=== PATIENT | male | born 1940 | race Caucasian/White ===

== ENCOUNTER 2017-02-21 19:49 | Emergency (ER) | payer MEDICARE, BC ==
[2017-02-21 20:05] VITALS: BP 124/78
--- NOTE | 2017-02-21 20:44 | UC ---
Skin Complaint HPI - HPI Summary HPI Summary: Pt c/o of tender "lump" in right ear that he noticed 3 days ago. Pt thinks he was bit by an insect. - History of Current Complaint Chief Complaint: UCSkin Time Seen by Provider: 02/21/17 20:10 Stated Complaint: RIGHT EAR PAIN Hx Obtained From: Patient Onset/Duration: Gradual Onset, Lasting Days - 3, Still Present Skin Exposure Onset/Duration: Days Ago - 3 Timing: Constant Onset Severity: Mild Current Severity: Mild Location: Ear (Right) Character: Raised, Painful Aggravating: Touch Alleviating: Unknown Associated Signs & Symptoms: Positive: Drainage - clear, crusted, Tenderness Related History: Insect Bite/Sting - suspected, Possible Reaction to: Insect - Allergy/Home Medications Allergies/Adverse Reactions: Allergies Allergy/AdvReac Type Severity Reaction Status Date / Time No Known Allergies Allergy Verified 02/21/17 19:57 Home Medications: Home Medications Lisinopril TAB* [Prinivil TAB*] 20 mg PO DAILY 02/21/17 [History Confirmed 02/21] Review of Systems Constitutional: Negative Skin: Other - tender lump, possible insect bite Eyes: Negative ENT: Other - possible insect bite, tender mass right outer ear base of pinna just above earlobe Respiratory: Negative Cardiovascular: Negative Gastrointestinal: Negative Genitourinary: Negative Motor: Negative Neurovascular: Negative Musculoskeletal: Negative Neurological: Negative Psychological: Negative All Other Systems Reviewed And Are Negative: Yes PMH/Surg Hx/FS Hx/Imm Hx Previously Healthy: No Cardiovascular History: Hypertension - Surgical History Surgical History: Yes Surgery Procedure, Year, and Place: paritial colon removal, 2 hernia operations , tongue surgery - Family History Known Family History: Positive: Cardiac Disease - Social History Occupation: Retired Lives: With Family Alcohol Use: None Substance Use Type: None Smoking Status (MU): Former Smoker Have You Smoked in the Last Year: No When Did the Patient Quit Smoking/Using Tobacco: 38 years ago - Immunization History Most Recent Influenza Vaccination: not yet Physical Exam Triage Information Reviewed: Yes Appearance: Well-Appearing Vital Signs: Initial Vital Signs Temp 98.4 F 02/21/17 19:53 Pulse 82 02/21/17 19:53 Resp 16 02/21/17 19:53 BP 124/78 02/21/17 19:53 Pulse Ox 98 02/21/17 19:53 Vital Signs Reviewed: Yes Eye Exam: Normal ENT Exam: Other - right ear, tender flucuant mas, with crusted opening of serous drainage. ~ 5 mm X 5 mm Neck exam: Normal Respiratory Exam: Normal Respiratory: Positive: No respiratory distress Musculoskeletal Exam: Normal Neurological Exam: Normal Psychological Exam: Normal Skin Exam: Other - tender mass, with crusted, clear drainage, right ear just above earlobe outer pinna Course/Dx - Course Course Of Treatment: small incision made in right ear tendermass with no purulent drainage. small amount of blood drained from site. Dressing applied. Bleeding controlled. pt tolerated procedure well. - Differential Diagnoses - Skin Complaint Differential Diagnoses: Abscess, Other - insect bite - Diagnoses Provider Diagnoses: insect bite? hematoma? abscess? Procedures - Incision and Drainage Site: right ear Instrument(s): Scalpel - 11 Discharge - Discharge Plan Condition: Stable Disposition: HOME Patient Education Materials: Insect Bite or Sting (ED), Abscess (ED) Referrals: Jesse Hobbs MD [Primary Care Provider] - If Needed Additional Instructions: Please follow up with your PCP or return to clinic as needed.
== END 2017-02-21 20:50 | disposition home or self-care (01) ==
LOC: UCCORT 19:49
DX: H93.8X1 Other specified disorders of right ear (principal); I10 Essential (primary) hypertension; Z87.891 Personal history of nicotine dependence
CPT/HCPCS: 99211; G0463

== ENCOUNTER 2017-03-02 13:14 | Emergency (ER) | payer MEDICARE, BC ==
[2017-03-02 13:30] VITALS: BP 138/73
--- NOTE | 2017-03-02 13:42 | UC ---
Ear Complaint HPI - HPI Summary HPI Summary: 76 YO MALE WITH RAPIDLY GROWING LESION RIGHT EAR I & DED LAST WK NO PUS SL PAIN - History of Current Complaint Chief Complaint: UCEar Stated Complaint: RIGHT EAR RECHECK Time Seen by Provider: 03/02/17 13:32 Hx Obtained From: Patient Onset/Duration: Sudden Onset, Lasting Days Severity Initially: Mild Severity Currently: Mild Pain Intensity: 3 Pain Scale Used: 0-10 Numeric Aggravating Factors: Nothing Alleviating Factors: Nothing Ear Image: 1 - NODULAR LESION. VESSELS. SLIGHT UMBILICATION AND CRUST - Allergies/Home Medications Allergies/Adverse Reactions: Allergies Allergy/AdvReac Type Severity Reaction Status Date / Time No Known Allergies Allergy Verified 03/02/17 13:30 PMH/Surg Hx/FS Hx/Imm Hx Cardiovascular History: Hypertension Cancer History: Colorectal Cancer, Other - TONGUE CA Other Cancer History: TONGUE - Surgical History Surgical History: Yes Surgery Procedure, Year, and Place: paritial colon removal, 2 hernia operations , tongue surgery - Family History Known Family History: Positive: Cardiac Disease, Hypertension - Social History Alcohol Use: None Substance Use Type: None Smoking Status (MU): Former Smoker Have You Smoked in the Last Year: No When Did the Patient Quit Smoking/Using Tobacco: 38 years ago - Immunization History Most Recent Influenza Vaccination: not yet Review of Systems Constitutional: Negative Skin: Negative Eyes: Negative ENT: Ear Ache Respiratory: Negative Cardiovascular: Negative Gastrointestinal: Negative Genitourinary: Negative Motor: Negative Neurovascular: Negative Musculoskeletal: Negative Neurological: Negative Psychological: Negative All Other Systems Reviewed And Are Negative: Yes Physical Exam Triage Information Reviewed: Yes Appearance: Well-Appearing, No Pain Distress, Well-Nourished Vital Signs: Initial Vital Signs Temp 98.4 F 03/02/17 13:26 Pulse 68 03/02/17 13:26 Resp 14 03/02/17 13:26 BP 138/73 03/02/17 13:26 Pulse Ox 98 03/02/17 13:26 Vital Signs Reviewed: Yes Eyes: Positive: Conjunctiva Clear ENT: Positive: Hearing grossly normal. Negative: Nasal congestion, Nasal drainage, Trismus, Muffled/hoarse voice Neck: Positive: Supple, Nontender Respiratory: Positive: Lungs clear, Normal breath sounds, No respiratory distress Psychological Exam: Normal Skin Exam: Other - SEE IMAGE Ear Complaint Course/Dx - Differential Dx/Diagnosis Provider Diagnoses: RIGHT EAR LESION. ?KERATOAKANTHOM VS SCC VS OTHER Discharge - Discharge Plan Condition: Stable Disposition: HOME Prescriptions: Cephalexin CAP* [Keflex CAP*] 500 mg PO QID #28 cap Referrals: Jesse Hobbs MD [Primary Care Provider] - Additional Instructions: CALL INSURANCE LOSS ADJUSTER DIRECTED I THINK YOU SHOULD HAVE LESION REMOVED FOR BIOPSY ? [place] TRY KEFLEX AND WARM COMPRESS IN CASE THIS IS DUE TO INFECTION
== END 2017-03-02 13:52 | disposition home or self-care (01) ==
LOC: UCCORT 13:14
DX: L98.9 Disorder of the skin and subcutaneous tissue, unspecified (principal); Z72.0 Tobacco use
CPT/HCPCS: 99212; G0463

== ENCOUNTER 2017-04-03 08:24 | Day surgery (SDC) | payer MEDICARE, BC ==
[~2017-04-03 08:24] MED LIST: Buffered Lidocaine 0.9% SYRIN* 5 ML/SYR SYRINGE INTRADERM ONE
[2017-04-03] MEDS ORDERED: ceFAZolin 2 GM PREMIX (*) 50 ML IVPB ONE (08:42)
[2017-04-03] MEDS ORDERED: Buffered Lidocaine 0.9% SYRIN* 5 ML/SYR SYRINGE ONE (08:42)
[2017-04-03] MEDS ORDERED: Lidocaine 1% MPF wEPI 200,000* 30 ML SDV ONE (09:30)
[2017-04-03] MEDS ORDERED: Methylene Blue 0.5 %* 50 MG/10 ML AMP IV ONE (09:30)
[2017-04-03] MEDS ORDERED: Midazolam* 1 MG/ML 2 ML VIAL (2 MG) ONE (09:54)
[2017-04-03] MEDS ORDERED: fentaNYL* 50 MCG/ML 2 ML VIAL (100 MCG VIAL) ONE (09:54)
[2017-04-03] MEDS ORDERED: Lidocaine 2% PF * 5 ML VIAL ONE (09:58)
[2017-04-03] MEDS ORDERED: Propofol* 10 MG/ML 20 ML BTL IV PUSH ONE ×2 (09:58→11:28)
[2017-04-03] MEDS ORDERED: Mineral Oil Sterile, TOPICAL* 25 ML BTL ONE (10:58)
[2017-04-03] MEDS ORDERED: Bupivacaine 0.25% SDV* 30 ML ONE (10:58)
[2017-04-03 12:17] VITALS: BP 131/67
== END 2017-04-03 12:41 | disposition home or self-care (01) ==
LOC: OR 08:24
PROVIDERS: ATTEND Plastic Surgery
DX: C44.222 Squamous cell carcinoma of skin of right ear and external auricular canal (principal); Z87.891 Personal history of nicotine dependence; I10 Essential (primary) hypertension; Z68.38 Body mass index [BMI] 38.0-38.9, adult; Z85.810 Personal history of malignant neoplasm of tongue
CPT/HCPCS: 88305; 88331; 88332; A9270-GY; J0690; J2001; J2250; J2704; J3010

== ENCOUNTER 2018-01-31 12:25 | Emergency (ER) | payer MEDICARE, BC ==
[2018-01-31 13:08] VITALS: BP 123/61
--- NOTE | 2018-02-17 23:55 | UC ---
Abdominal Pain Male HPI - HPI Summary HPI Summary: worsening LLQ pain - History of Current Complaint Chief Complaint: UCAbdominalPain Stated Complaint: LOWER LEFT ABDOMEN COMPLAINT Time Seen by Provider: 01/31/18 13:17 Hx Obtained From: Patient Onset/Duration: Sudden Onset Timing: Constant Severity Initially: Mild Severity Currently: Moderate Pain Intensity: 0 Location: Discrete At: LLQ Radiates: No Character: Colicy, Cramping, Sharp Aggravating Factor(s): Nothing Alleviating Factor(s): Nothing Associated Signs And Symptoms: Positive: Negative - Allergies/Home Medications Allergies/Adverse Reactions: Allergies Allergy/AdvReac Type Severity Reaction Status Date / Time nestor seed oil Allergy Headache Uncoded 01/31/18 13:00 Home Medications: Home Medications Calcium Phosphate Trib/Vit D3 [Prabhu Calcium + Vi... 250-135-200 mg-mg-Unit] 1 chw PO DAILY 01/31/18 [History Confirmed 01/31/18] Glucosam/Chondr/Collagn/Hyalur [Th Glucosamine/Chondroiti] 1 cap PO DAILY [History Confirmed 01/31/18] Lipoflavonoid 1 cap PO TID AC 01/31/18 [History Confirmed 01/31/18] Lisinopril TAB* [Prinivil TAB*] 20 mg PO DAILY 01/31/18 [History Confirmed 01/31] Methylsulfonylmethane [MSM] 1,000 mg PO DAILY 01/31/18 [History Confirmed ] Resveratrol 250 mg PO DAILY 01/31/18 [History Confirmed 01/31/18] Saw/Vit E/Sod Shani/Lyc/Beta/Pyg [Complete Prostate Health] 1 tab PO BID 01/31/18 [History Confirmed 01/31/18] Turmeric/Turmeric Root Extract [Turmeric 500 mg Capsule] 1 each PO DAILY [History Confirmed 01/31/18] PMH/Surg Hx/FS Hx/Imm Hx Previously Healthy: No Cardiovascular History: Hypertension - Surgical History Surgical History: Yes Surgery Procedure, Year, and Place: paritial colon removal [facility], 2 hernia operations, tongue surgery at [place] - Family History Known Family History: Positive: Cardiac Disease, Hypertension - Social History Occupation: Retired Lives: With Family Alcohol Use: None Substance Use Type: None Smoking Status (MU): Former Smoker Have You Smoked in the Last Year: No When Did the Patient Quit Smoking/Using Tobacco: 38 years ago - Immunization History Most Recent Influenza Vaccination: not yet Review of Systems Constitutional: Negative Skin: Negative Eyes: Negative ENT: Negative Respiratory: Negative Cardiovascular: Negative Gastrointestinal: Abdominal Pain Genitourinary: Negative Motor: Negative Neurovascular: Negative Musculoskeletal: Negative Neurological: Negative Psychological: Negative Is Patient Immunocompromised?: No All Other Systems Reviewed And Are Negative: Yes Physical Exam Triage Information Reviewed: Yes Appearance: Well-Appearing, Well-Nourished, Pain Distress - mild Vital Signs: Initial Vital Signs Temp 98.6 F 01/31/18 12:54 Pulse 84 01/31/18 12:54 Resp 18 01/31/18 12:54 BP 123/61 01/31/18 12:54 Pulse Ox 97 01/31/18 12:54 Vital Signs Reviewed: Yes Eye Exam: Normal Eyes: Positive: Conjunctiva Clear ENT Exam: Normal ENT: Positive: Normal ENT inspection, Hearing grossly normal. Negative: Trismus , Muffled voice, Hoarse voice Dental Exam: Normal Neck exam: Normal Neck: Positive: Supple, Nontender, No Lymphadenopathy Respiratory Exam: Normal Respiratory: Positive: Chest non-tender, Lungs clear, Normal breath sounds, No respiratory distress, No accessory muscle use Cardiovascular Exam: Normal Cardiovascular: Positive: RRR, No Murmur, Pulses Normal, Brisk Capillary Refill Abdominal Exam: Other Abdomen Description: Positive: Soft, Other: - LLQ tenderness/pain. Negative: No Organomegaly, CVA Tenderness (R), CVA Tenderness (L) Bowel Sounds: Positive: Present Musculoskeletal Exam: Normal Musculoskeletal: Positive: Strength Intact, ROM Intact, No Edema Neurological Exam: Normal Neurological: Positive: Alert, Muscle Tone Normal Psychological Exam: Normal Skin Exam: Normal Abd Pain Male Course/Dx - Course Course Of Treatment: NPO, to [facility] emergency department by private car for further evaluation - Differential Dx/Clinical Impression Provider Diagnoses: LLQ Abdomen pain Discharge - Sign-Out/Discharge Documenting (check all that apply): Patient Departure - Discharge Plan Condition: Fair Disposition: HOME-RECOMMEND TO ED Patient Education Materials: Acute Abdominal Pain (DC) Referrals: Jesse Hobbs MD [Primary Care Provider] - Additional Instructions: Please go directly to the emergency department at [facility] for further evaluation of left lower abdomen pain-- Nothing to eat or drink until evaluated by MD in the emergency department - Billing Disposition and Condition Condition: FAIR Disposition: Home-Recommend to ED Attestation Statement User Type: Provider - I was available for consult. This patient was seen by the ELIER. The patient was not presented to, seen by, or examined by me. -Zamzam
== END 2018-01-31 13:37 | disposition home or self-care (01) ==
LOC: UCCORT 12:25
DX: R10.32 Left lower quadrant pain (principal); I10 Essential (primary) hypertension; Z82.49 Family history of ischemic heart disease and other diseases of the circulatory system; Z87.891 Personal history of nicotine dependence
CPT/HCPCS: 81003; 99212; G0463

== ENCOUNTER 2018-01-31 14:30 | Emergency (ER) | payer MEDICARE, BC ==
--- NOTE | 2018-01-31 17:17 | ED ---
Abdominal Pain/Male - HPI Summary HPI Summary: 77 y/o male presents to the ED C/o LLQ pain starting there days ago, intermittent pain worse with urination and movement. No pain at rest. Denies fever, CP, SOB, urinary sx. PMHx HTN. Last BM 09:00 this morning. This is scribe Ed Izzy documenting for attending Heriberto Grier MD - History of Current Complaint Chief Complaint: EDAbdPain Stated Complaint: LOWER ABD PAIN SINCE SUNDAY Hx Obtained From: Patient Onset/Duration: Lasting Days Timing: Intermittent Pain Intensity: 0 Location: Discrete At: LLQ Aggravating Factor(s): Movement, Other: - urination Alleviating Factor(s): Nothing Associated Signs And Symptoms: Positive: Negative - Allergies/Home Medications Allergies/Adverse Reactions: Allergies Allergy/AdvReac Type Severity Reaction Status Date / Time nestor seed oil Allergy Headache Uncoded 01/31/18 13:00 PMH/Surg Hx/FS Hx/Imm Hx Previously Healthy: No Cardiovascular History: Reports: Hx Hypertension Musculoskeletal History: Reports: Hx Arthritis - general and joint Sensory History: Reports: Hx Contacts or Glasses Denies: Hx Hearing Aid Opthamlomology History: Reports: Hx Contacts or Glasses Neurological History: Reports: Hx Headaches, Hx Migraine - Cancer History Cancer Type, Location and Year: colon cancer s/p surgery. tongue cancer s/p surgery - Surgical History Surgery Procedure, Year, and Place: paritial colon removal [facility], 2 hernia operations, tongue surgery at [facility] Hx Anesthesia Reactions: No Infectious Disease History: No Infectious Disease History: Denies: Traveled Outside the [place] in Last 30 Days - Family History Known Family History: Positive: Cardiac Disease, Hypertension - Social History Alcohol Use: None Substance Use Type: Reports: None Smoking Status (MU): Former Smoker Have You Smoked in the Last Year: No Review of Systems Negative: Fever, Chills Negative: Erythema Negative: Sore Throat Negative: Chest Pain Negative: Shortness Of Breath, Cough Positive: Abdominal Pain. Negative: Vomiting, Nausea Negative: dysuria, hematuria Negative: Myalgia, Edema Negative: Rash Neurological: Other - no dizziness All Other Systems Reviewed And Are Negative: Yes Physical Exam - Summary Physical Exam Summary: Constitutional: Well-developed, Well-nourished, Alert. (-) Distressed Skin: Warm, Dry HENT: Normocephalic; Atraumatic Eyes: Conjunctiva normal Neck: Musculoskeletal ROM normal neck. (-) JVD, (-) Stridor, (-) Tracheal deviation Cardio: Rhythm regular, rate normal, Heart sounds normal; Intact distal pulses; The pedal pulses are 2+ and symmetric. Radial pulses are 2+ and symmetric. (-) Murmur Pulmonary/Chest wall: Effort normal. (-) Respiratory distress, (-) Wheezes, (-) Rales Abd: Soft, LLQ tenderness, L CVA tenderness, (-) Distension, (-) Guarding, (-) Rebound Musculoskeletal: (-) Edema Lymph: (-) Cervical adenopathy Neuro: Alert, Oriented x3 Psych: Mood and affect Normal Triage Information Reviewed: Yes Vital Signs On Initial Exam: Initial Vitals Temp Pulse Resp BP Pulse Ox 98.5 F 79 18 148/91 95 01/31/18 14:47 01/31/18 14:47 01/31/18 14:47 01/31/18 14:47 01/31/18 14:47 Vital Signs Reviewed: Yes Diagnostics - Vital Signs Vital Signs Temp Pulse Resp BP Pulse Ox 01/31/18 15:46 98.6 F 68 18 142/73 96 01/31/18 14:47 98.5 F 79 18 148/91 95 - Laboratory Result Diagrams: 01/31/18 17:19 01/31/18 17:19 Lab Statement: Any lab studies that have been ordered have been reviewed, and results considered in the medical decision making process. - CT ABD/PEL CT CT Interpretation Completed By: Radiologist - 1. FINDINGS CONSISTENT WITH DIVERTICULITIS AT THE JUNCTION OF THE DESCENDING AND SIGMOID COLON. THERE IS NO EVIDENCE FOR ABSCESS. 2. SMALL 2 MM NONOBSTRUCTING RIGHT RENAL CALCULUS. 3. ENLARGED PROSTATE GLAND. Abdominal Pain Fem Course/Dx - Diagnoses Provider Diagnoses: Diverticulitis Discharge - Sign-Out/Discharge Documenting (check all that apply): Sign-Out Patient Signing out patient TO: Dawit Day Receiving patient FROM: Heriberto Grier - pendLesley leyva visit - Discharge Plan Referrals: Jesse Hobbs MD [Primary Care Provider] -
[2018-01-31 17:36] LABS: ABS Basophils 0 10^3/ul (0-0.2); ABS Eosinophils 0.3 10^3/ul (0-0.6); ABS Lymphocytes 1.6 10^3/ul (1.0-4.8); ABS Monocytes 0.8 10^3/ul (0-0.8); ABS Neutrophils 5.4 10^3/ul (1.5-7.7); ABS Nucleated RBC 0 10^3/ul; Eosinophil % 3.7 % (0-6); Hematocrit 47 % (42-52); Mean Corpuscular HGB Conc 34 g/dl (31-36); Mean Corpuscular Hemoglobin 30 pg (27-31); Mean Corpuscular Volume 87 fL (80-94); Mean Platelet Volume 7.1 um3 (7.4-10.4); Nucleated Red Blood Cells % 0; Platelet Count 228 10^3/ul (150-450); Red Blood Count 5.41 10^6/ul (4.00-5.40); Red Cell Distribution Width 14 % (10.5-15); White Blood Count 8.2 10^3/ul (3.5-10.8)
[2018-01-31 17:53] LABS: EGFR Non-African American 93.3 (>60)
--- NOTE | 2018-01-31 17:57 | RAD ---
INDICATION: Left lower quadrant pain with urination evaluate for stone disease, diverticulitis. COMPARISON: Comparison is made with a prior CT of the abdomen and pelvis from August 21, 2014. TECHNIQUE: A CT scan of the abdomen and pelvis was performed without intravenous and without oral contrast. Contiguous axial sections were obtained from the lung bases through the symphysis pubis. Images were reconstructed in the coronal and sagittal planes. FINDINGS: There is mild dependent bilateral lower lobe subsegmental atelectasis. No pleural effusion is present. The liver and spleen are normal in size. The liver is slightly decreased in attenuation consistent with fatty infiltration. No significant focal hepatic abnormality is seen on this noncontrast study. No calcified gallstones are noted. The pancreas appears to be within normal limits. There is a small 1.2 cm low-density right adrenal nodule which is unchanged from the prior exam and therefore most consistent with a benign adenoma. The left adrenal gland appears to be within normal limits. The kidneys are normal in size. There is a 2 mm calculus in the lower pole of the right kidney which is nonobstructing. No hydronephrosis is present. No ureteral or bladder calculi are seen. The prostate gland is enlarged measuring 7.0 cm in diameter. The aorta is normal in caliber with moderate calcific plaque present. No significant enlarged retroperitoneal lymph nodes are seen. The stomach, small and large bowel appear nondistended. The appendix is within normal limits. There is moderate descending and sigmoid diverticulosis. There appears to be an inflamed diverticulum present at the junction of the distal descending and proximal sigmoid colon. There is mild wall thickening at that level and interstitial stranding in the adjacent fat most consistent with diverticulitis. No abscess is present. No free intraperitoneal air or fluid is present. No significant focal osseous abnormality is seen. IMPRESSION: 1. FINDINGS CONSISTENT WITH DIVERTICULITIS AT THE JUNCTION OF THE DESCENDING AND SIGMOID COLON. THERE IS NO EVIDENCE FOR ABSCESS. 2. SMALL 2 MM NONOBSTRUCTING RIGHT RENAL CALCULUS. 3. ENLARGED PROSTATE GLAND.
[2018-01-31] MEDS ORDERED: metroNIDAZOLE IV 500 MG/100ML* 500 MG/100 ML BAG IVPB ONE (19:00)
[2018-01-31] MEDS ORDERED: Ciprofloxacin 400MG IVPREMIX(* 400 MG/200 ML BAG IVPB ONE (19:00)
[2018-01-31 19:05] LABS: Urine Appearance Clear; Urine Blood Negative (Negative); Urine Color Yellow; Urine Ketones Negative (Negative); Urine Protein Negative (Negative); Urine Red Blood Cell 1+(3-5/hpf) (Absent); Urine Specific Gravity 1.013 (1.010-1.030); Urine Urobilinogen Negative (Negative); Urine White Blood Cell Trace(0-5/hpf) (Absent)
[2018-01-31] MEDS ORDERED: metroNIDAZOLE TAB* 250 MG PO ONE (20:51)
[2018-01-31 23:02] VITALS: BP 00/00
--- NOTE | 2018-02-01 04:13 | CONSULT ---
Consult Consult: PCP: Jessie Hobbs MD Date/Time: 01/31/20182014 Reason for Consult: non-toxic mild diverticulitis, consideration for admission HPI: Mr Rodriguez is a highly functional 77YO male HX HTN, colon CA, & glossal CA who reports onset several days ago of intermittent LLQ pain made worse with urination, but without B/U/F of urination. He denies F/C, sweats, N/V/D, chest pain, SOB, black/bloody stools, or other issues. He was seen at urgent care earlier today and referred to [facility] for further evaluation which has revealed a mild sigmoid divericulitis w/o meeting SIRS or qSOFA criteria. He was advised he could be admitted overnight for observation and another dose of IV ABX in the morning or safely discharged home on oral ABX to follow up with his PCP early next week. Both he and his prefer and are comfortable with discharge. He was planning a camping trip ~90 minutes away this weekend with family and has been advised I would prefer him not attend in order to be closer to medical resources in the unlikely event he should worsen. He was advised to not perform any exertional activity, call Dr Hobbs' office in the AM for f/u appointment, and to return to the ED for intractable N/V, significant increase in pain, high fever, blood in stools, or other symptom he finds worrisome enough to warrant emergency evaluation. Additionally, he agreed to return to the ED should his advise him to regardless of whether he felt it necessary. Both expressed understanding and agreement. Questions were sought and answered to their satisfaction. PMedHx HTN HX colon CA HX SCCA of tongue Ambulatory Orders Calcium Phosphate Trib/Vit D3 [Jackson Calcium + Vi... 250-135-200 mg-mg-Unit] 1 chw PO DAILY 01/31/18 Ciprofloxacin HCl [Cipro] 500 mg PO BID #14 tablet 01/31/18 Glucosam/Chondr/Collagn/Hyalur [Th Glucosamine/Chondroiti] 1 cap PO DAILY Lipoflavonoid 1 cap PO TID AC 01/31/18 Lisinopril TAB* [Prinivil TAB*] 20 mg PO DAILY 01/31/18 Methylsulfonylmethane [MSM] 1,000 mg PO DAILY 01/31/18 Resveratrol 250 mg PO DAILY 01/31/18 Saw/Vit E/Sod Shani/Lyc/Beta/Pyg [Complete Prostate Health] 1 tab PO BID 01/31/18 Turmeric/Turmeric Root Extract [Turmeric 500 mg Capsule] 1 each PO DAILY metroNIDAZOLE [Metronidazole] 500 mg PO TID #21 tablet 01/31/18 Allergies nestor seed oil Allergy (Uncoded 01/31/18 13:00) Headache PSurgHx SCCA of tongue excision SocHx: quit smoking ~35 years ago, no alcohol, no recreational drugs; lives with his ; full code status FamHx: reviewed & non-contributory to presentation ROS: as above, otherwise reviewed and all were negative vitals: Vital Signs Temp 37.0 C 01/31/18 23:01 Pulse 0 01/31/18 23:01 Resp 0 01/31/18 23:01 BP 00/00 01/31/18 23:01 Pulse Ox 0 01/31/18 23:01 Intake & Output 01/31/18 01/31/18 02/01/18 11:59 23:59 11:59 Intake Total 100 Balance 100 Weight 118.841 kg Intake: IV Fluids 100 Constitutional: NAD, normally developed, obese elderly white male appearing somewhat younger than his recorded age HEENM: atraumatic; sclera/conjunctiva: anicteric/clear; hearing: clinically intact; oropharynx: clear, mucosa moist Neck: soft tissue: non-tender; thyroid: normal Pulmonary: clear to auscultation bilaterally, good aeration, no accessory muscle use CV: RR/RR, normal S1S2, no carotid bruit, no jugular venous distention, 2+ B DP/ PT, no edema Abdominal: soft, non-distended, minimal LLQ tenderness w/o rebound/guarding/ rigidity, normoactive bowel sounds, no hepatosplenomegaly or masses, no costovertebral angle tenderness Musculoskeletal: general: grossly intact; gait: stable Integumental: normal appearance and texture of exposed skin Psychiatric orientation: AA&O to PPS affect: calm, appropriate mood: pleasant eye contact: good content: reliable responses: timely insight: good Testing: Lab Results 01/31/18 01/31/18 01/31/18 Range/Units 17:19 17:19 17:19 WBC 8.2 (3.5-10.8) 10^3/ul RBC 5.41 H (4.00-5.40) 10^6/ul Hgb 16.0 (14.0-18.0) g/dl Hct 47 (42-52) % MCV 87 (80-94) fL MCH 30 (27-31) pg MCHC 34 (31-36) g/dl RDW 14 (10.5-15) % Plt Count 228 (150-450) 10^3/ul MPV 7.1 L (7.4-10.4) um3 Neut % (Auto) 65.8 (38-83) % Lymph % (Auto) 20.0 L (25-47) % [place] % (Auto) 10.0 H (0-7) % Eos % (Auto) 3.7 (0-6) % Baso % (Auto) 0.5 (0-2) % Absolute Neuts (auto) 5.4 (1.5-7.7) 10^3/ul Absolute Lymphs (auto) 1.6 (1.0-4.8) 10^3/ul Absolute Monos (auto) 0.8 (0-0.8) 10^3/ul Absolute Eos (auto) 0.3 (0-0.6) 10^3/ul Absolute Basos (auto) 0 (0-0.2) 10^3/ul Absolute Nucleated RBC 0 10^3/ul Nucleated RBC % 0 Sodium 141 (135-145) mmol/L Potassium 4.5 (3.5-5.0) mmol/L Chloride 105 (101-111) mmol/L Carbon Dioxide 29 (22-32) mmol/L Anion Gap 7 (2-11) mmol/L BUN 10 (6-24) mg/dL Creatinine 0.80 (0.67-1.17) mg/dL Est GFR ( Amer) 112.8 (>60) Est GFR (Non-Af Amer) 93.3 (>60) BUN/Creatinine Ratio 12.5 (8-20) Glucose 94 (70-100) mg/dL Lactic Acid 1.4 (0.5-2.0) mmol/L Calcium 9.4 (8.6-10.3) mg/dL Total Bilirubin 1.00 (0.2-1.0) mg/dL AST 18 (13-39) U/L ALT 15 (7-52) U/L Alkaline Phosphatase 64 (34-104) U/L C-Reactive Protein 45.95 H (<8.01) mg/L Total Protein 7.2 (6.4-8.9) g/dL Albumin 4.1 (3.2-5.2) g/dL Globulin 3.1 (2-4) g/dL Albumin/Globulin Ratio 1.3 (1-3) Lipase 49 (11.0-82.0) U/L Urine Color Urine Appearance Urine pH (5-9) Ur Specific [place] (1.010-1.030) Urine Protein (Negative) Urine Ketones (Negative) Urine Blood (Negative) Urine Nitrate (Negative) Urine Bilirubin (Negative) Urine Urobilinogen (Negative) Ur Leukocyte Esterase (Negative) Urine WBC (Auto) (Absent) Urine RBC (Auto) (Absent) Urine Bacteria (Absent) Urine Glucose (Negative) Urine Ascorbic Acid (Negative) 01/31/18 Range/Units 18:52 WBC (3.5-10.8) 10^3/ul RBC (4.00-5.40) 10^6/ul Hgb (14.0-18.0) g/dl Hct (42-52) % MCV (80-94) fL MCH (27-31) pg MCHC (31-36) g/dl RDW (10.5-15) % Plt Count (150-450) 10^3/ul MPV (7.4-10.4) um3 Neut % (Auto) (38-83) % Lymph % (Auto) (25-47) % [place] % (Auto) (0-7) % Eos % (Auto) (0-6) % Baso % (Auto) (0-2) % Absolute Neuts (auto) (1.5-7.7) 10^3/ul Absolute Lymphs (auto) (1.0-4.8) 10^3/ul Absolute Monos (auto) (0-0.8) 10^3/ul Absolute Eos (auto) (0-0.6) 10^3/ul Absolute Basos (auto) (0-0.2) 10^3/ul Absolute Nucleated RBC 10^3/ul Nucleated RBC % Sodium (135-145) mmol/L Potassium (3.5-5.0) mmol/L Chloride (101-111) mmol/L Carbon Dioxide (22-32) mmol/L Anion Gap (2-11) mmol/L BUN (6-24) mg/dL Creatinine (0.67-1.17) mg/dL Est GFR ( Amer) (>60) Est GFR (Non-Af Amer) (>60) BUN/Creatinine Ratio (8-20) Glucose (70-100) mg/dL Lactic Acid (0.5-2.0) mmol/L Calcium (8.6-10.3) mg/dL Total Bilirubin (0.2-1.0) mg/dL AST (13-39) U/L ALT (7-52) U/L Alkaline Phosphatase (34-104) U/L C-Reactive Protein (<8.01) mg/L Total Protein (6.4-8.9) g/dL Albumin (3.2-5.2) g/dL Globulin (2-4) g/dL Albumin/Globulin Ratio (1-3) Lipase (11.0-82.0) U/L Urine Color Yellow Urine Appearance Clear Urine pH 6.0 (5-9) Ur Specific [place] 1.013 (1.010-1.030) Urine Protein Negative (Negative) Urine Ketones Negative (Negative) Urine Blood Negative (Negative) Urine Nitrate Negative (Negative) Urine Bilirubin Negative (Negative) Urine Urobilinogen Negative (Negative) Ur Leukocyte Esterase 1+ A (Negative) Urine WBC (Auto) Trace(0-5/hpf) (Absent) Urine RBC (Auto) 1+(3-5/hpf) A (Absent) Urine Bacteria Absent (Absent) Urine Glucose Negative (Negative) Urine Ascorbic Acid * A (Negative) CT abd/pel WO, personally reviewed: IMPRESSION: 1. FINDINGS CONSISTENT WITH DIVERTICULITIS AT THE JUNCTION OF THE DESCENDING AND SIGMOID COLON. THERE IS NO EVIDENCE FOR ABSCESS. 2. SMALL 2 MM NONOBSTRUCTING RIGHT RENAL CALCULUS. 3. ENLARGED PROSTATE GLAND. Impression: 77M HX HTN, colon CA, & SCCA of tongue presents with mild sigmoid diverticulitis w/o meeting SIRS or qSOFA criteria DIAGNOSIS & PLAN Primary non-toxic mild sigmoid diverticulitis : given IV cipro 500mg x1, metronidazole 500mg IV x1, & metronidazole 500mg PO x1 in ED : I sent anRX for 7 days cipro 500mg BID & metronidazole 500mg TID sent to RX on record : other instructions as in HPI Secondary HTN : continue current outpatient regimen
== END 2018-01-31 23:01 | disposition home or self-care (01) ==
LOC: ED 14:30
DX: K57.32 Diverticulitis of large intestine without perforation or abscess without bleeding (principal); N20.0 Calculus of kidney; N40.0 Benign prostatic hyperplasia without lower urinary tract symptoms; Z85.038 Personal history of other malignant neoplasm of large intestine; Z85.810 Personal history of malignant neoplasm of tongue; Z82.49 Family history of ischemic heart disease and other diseases of the circulatory system; Z87.891 Personal history of nicotine dependence; I10 Essential (primary) hypertension
CPT/HCPCS: 36415; 74176; 80053; 81003; 81015; 83605; 83690; 85025; 86140; 87086; 96365; 99283; A9270-GY; J0744; J3490

== ENCOUNTER 2018-10-07 14:49 | Emergency (ER) | payer MEDICARE, BC ==
[2018-10-07 15:32] VITALS: BP 170/92
--- NOTE | 2018-10-07 15:49 | UC ---
Head Injury HPI - HPI Summary HPI Summary: 78-year-old male comes in with a chief complaint of a fall striking his face just prior to arrival. Patient was at the bank is walking towards his car. He fell and struck his face. He remembers his face hitting the pavement. He remembers leaving the bank. He does not specifically recall walk from the bank to where he struck his face. He got up on his own walked back into the bank they helped him clean off his face and then he drove here. He remembers all this. No weakness numbness. He does have abrasion on his nose and chin and his hands. He is not on any blood thinners. Denies any other injuries. - History Of Current Complaint Chief Complaint: UCHeadInjury Stated Complaint: FACIAL INJURY Time Seen by Provider: 10/07/18 15:04 Pain Intensity: 3 - Allergies/Home Medications Allergies/Adverse Reactions: Allergies Allergy/AdvReac Type Severity Reaction Status Date / Time nestor seed oil Allergy Severe Headache Uncoded 03/15/18 11:34 Malt extract Allergy Severe Headache Uncoded 03/15/18 11:34 Home Medications: Home Medications Irbesartan 150 mg PO DAILY 10/07/18 [History Confirmed 10/07/18] Lipoflavonoid 1 tab PO AC 10/07/18 [History Confirmed 10/07/18] PMH/Surg Hx/FS Hx/Imm Hx Previously Healthy: Yes Cardiovascular History: Hypertension - Surgical History Surgical History: Yes Surgery Procedure, Year, and Place: paritial colon removal [facility], 2 hernia operations, tongue surgery at [place] - Family History Known Family History: Positive: Cardiac Disease, Hypertension - Social History Alcohol Use: None Substance Use Type: None Smoking Status (MU): Former Smoker Have You Smoked in the Last Year: No When Did the Patient Quit Smoking/Using Tobacco: 38 years ago - Immunization History Most Recent Influenza Vaccination: not yet Most Recent Tetanus Shot: UNKNOWN Review of Systems All Other Systems Reviewed And Are Negative: Yes Constitutional: Positive: Negative Skin: Positive: Other - SEE HPI Eyes: Positive: Negative. Negative: Blurred Vision ENT: Positive: Negative Respiratory: Positive: Negative Cardiovascular: Positive: Negative Gastrointestinal: Positive: Negative. Negative: Nausea Motor: Positive: Negative Neurovascular: Positive: Negative Musculoskeletal: Positive: Negative Neurological: Positive: Negative Psychological: Positive: Negative Is Patient Immunocompromised?: No Physical Exam Triage Information Reviewed: Yes Appearance: Well-Appearing, No Pain Distress, Well-Nourished Vital Signs: Initial Vital Signs Temp 99.2 F 10/07/18 15:20 Pulse 74 10/07/18 15:20 Resp 24 10/07/18 15:20 BP 170/92 10/07/18 15:20 Pulse Ox 97 10/07/18 15:20 Vital Signs Reviewed: Yes Eye Exam: Normal Eyes: Positive: Conjunctiva Clear, Other: - PERRLA/EOMI, NO PHOTOPHOBIA ENT: Positive: Pharynx normal, TMs normal - NO HEMOTYMPANUM Neck: Positive: Supple, Nontender Respiratory: Positive: Lungs clear, Normal breath sounds, No respiratory distress Cardiovascular: Positive: RRR Musculoskeletal Exam: Normal Musculoskeletal: Positive: Strength Intact, ROM Intact Neurological Exam: Normal Neurological: Positive: Alert, Muscle Tone Normal Psychological Exam: Normal Psychological: Positive: Age Appropriate Behavior Skin: Positive: Other - ABRASION ON NOSE 2CM X 1CM. ABRASION ON RT HAND 5MM X 5MM. Diagnostics - EKG Cardiac Rate: NL - AT 1511 Cardiac Rhythm: Sinus: Normal - 75 BPM Ectopy: None ST Segment: Normal Summary of EKG Findings: PROLONGED [place] INTERVAL 310 Head Injury Course/Dx - Course Course Of Treatment: Patient Name: YANE STINSON JR Medical Record#: [id number] Ordering Physician: Diaz Rosario MD Acct.#: [id number] : 1940 Age: 78 Sex: M Location: [facility] Exam Date: 10/07/18 154 ADM Status: [facility] ER Order Information: CT SPINE CERVICAL W/O Accession Number: [id number] CPT: 49245 INDICATION: Fell and struck face. Denies neck pain. COMPARISON: No relevant prior exams available on the [facility] PACS for comparison. TECHNIQUE: Multidetector CT images foramen magnum to lung apices without contrast. Multiplanar reformation. REPORT: Normal vertebral alignment accounting for exam positioning without spondylolisthesis or subluxation at any level. Negative for cervical vertebral body or posterior element fracture. Negative for paravertebral hematoma. 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 Disc space narrowing is most marked at the C5-C6 where it is severe. Congenitally generous pedicles mitigate against acquired central canal stenosis. No significant osseous foraminal stenosis evident at any level. IMPRESSION: #. No CT evidence for traumatic cervical spine injury. <Electronically signed by Chuck Slade MD in OV> 10/07/18 1635 Patient Name: YANE STINSON JR Medical Record#: [id number] Ordering Physician: Diaz Rosario MD Acct.#: [id number] : 1940 Age: 78 Sex: M [facility] Exam Date: 10/07/18 154 ADM Status: REG ER Order Information: CT MAXILLOFACIAL W/O Accession Number: [id number] CPT: 82437 Indication: Facial injury. CT of the facial bones was obtained in the axial plane. Sagittal and coronal reconstructed images were obtained. Mastoid air cells are well aerated. The mandible demonstrates no evidence of fracture. The maxilla including the pterygoid plates are intact. Maxillary sinuses and frontal sinuses are clear. There is opacification of the ethmoid air cells likely due to sinusitis. The nasal arch demonstrates fracture of the right anterior tip of the nasal arch. Zygomatic arch appears intact. IMPRESSION: Likely fracture of the right anterior nasal arch with minimal displacement. <Electronically signed by Shavonne Prince MD in OV> 10/07/18 1631 Patient Name: YANE STINSON JR Medical Record#: [id number] Ordering Physician: Diaz Rosario MD Acct.#: [id number] : 1940 Age: 78 Sex: M [facility] Exam Date: 10/07/18 154 ADM Status: REG ER Order Information: CT BRAIN WO Accession Number: [id number] CPT: 56532 Indication: Head injury. CT of the brain performed without IV contrast. Ventricular structures are midline. No midline shift is noted. The extra-axial spaces are unremarkable. Mastoid air cells and paranasal sinuses are otherwise unremarkable. IMPRESSION: No intracranial mass or hemorrhage is noted. <Electronically signed by Shavonne Prince MD in OV> 10/07/[address] reports with the patient. For the nasal fracture starting the patient on amoxicillin and is to follow-up with ENT. Otherwise no injury noted on CT. He'll be on topical mupirocin for the abrasion. I discussed the EKG report with the patient to include the elongated AZ interval. I question the patient multiple times about whether or not he passed out. Patient denies passing out. I let him know that if he didn't pass out he needs to be evaluated in the emergency department which he declined. He denied any chest pain or palpitations or passing out. Patient will be following up his primary care doctor and ENT. We discussed going to the emergency department if he has any symptoms. Patient was given T tap here in clinic today. - Differential Dx/Diagnosis Provider Diagnosis: Head injury, Contusion of face, Abrasion of hand, Nasal bone fracture Discharge - Sign-Out/Discharge Documenting (check all that apply): Patient Departure All imaging exams completed and their final reports reviewed: Yes - Discharge Plan Condition: Stable Disposition: HOME Prescriptions: Amoxicillin PO (*) [Amoxicillin 875 MG (*)] 875 mg PO BID #20 tab Mupirocin 1 applic TOPICAL TID #22 gm Patient Education Materials: Nasal Fracture (ED), Head Injury (ED), Abrasion ( ED), Facial Contusion (ED) Referrals: Jesse Hobbs MD [Primary Care Provider] - Vu Burr MD [Medical Doctor] - Chau Ndiaye MD [Medical Doctor] - Additional Instructions: FOLLOW UP WITH YOUR PRIMARY CARE DOCTOR. FOLLOW UP WITH ENT FOR YOUR BROKEN NOSE. KEEP THE ABRASIONS MOIST WITH ANTIBIOTIC OINTMENT TO HELP DECREASE SCARRING. GO TO THE EMERGENCY DEPARTMENT FOR ANY WORSENING OF YOUR CONDITION; YOU FEEL LIKE YOU ARE GOING TO PASS OUT, YOU PASS OUT, WEAKNESS, NUMBNESS, DIFFICULTY WITH VISION OR SPEECH, PAIN, FEVER, YOU FEEL ILL OR ANY QUESTIONS OR CONCERNS. - Billing Disposition and Condition Condition: STABLE Disposition: Home
[2018-10-07] MEDS ORDERED: Tetan/Diph/Pertus SYR(Tdap)* 0.5 ML SYR(BOOSTRIX) use SYR IM ONE (16:55)
== END 2018-10-07 17:10 | disposition home or self-care (01) ==
LOC: UCCORT 14:49
DX: S09.90XA Unspecified injury of head, initial encounter (principal); S02.2XXA Fracture of nasal bones, initial encounter for closed fracture; S00.83XA Contusion of other part of head, initial encounter; S60.511A Abrasion of right hand, initial encounter; I10 Essential (primary) hypertension; Z91.018 Allergy to other foods; Z87.891 Personal history of nicotine dependence; Z79.899 Other long term (current) drug therapy; W18.30XA Fall on same level, unspecified, initial encounter; Y92.9 Unspecified place or not applicable
CPT/HCPCS: 70450; 70486; 72125; 90471; 90715; 93005; 99212; G0463

== ENCOUNTER 2023-05-21 07:38 | Observation (INO) ==
[~2023-05-21 07:38] MED LIST changes: -Buffered Lidocaine 0.9% SYRIN* 5 ML/SYR SYRINGE INTRADERM ONE; +Buffered Lidocaine 1% SYRIN 1 ml INTRADERM ONE; +Dexamethasone IV 4 MG/ML VIAL 1 ml VIAL ONE; +Famotidine IV 10 MG/ML 2 ml VIAL (20 mg) IV ONE; +Lactated Ringers 1000 ml BAG 1,000 ML IV SCH; +Lidocaine 2% PF 5 ML VIAL ONE; +Naloxone 0.4 mg VIAL 0.4 mg/ml 1 ml VIAL IV PRN; +Ondansetron 4 mg VIAL 2 MG/ML 2 ml VIAL IV PRN; +Ondansetron 4 mg VIAL 2 MG/ML 2 ml VIAL ONE; +Propofol 10 MG/ML 20 ML BTL ONE; +fentaNYL 100 mcg/2 ml 50 MCG/ML VIAL IV PRN; +fentaNYL 100 mcg/2 ml 50 MCG/ML VIAL ONE
[2023-05-21] MEDS ORDERED: Sterile Water for Inj 10 ML ONE (08:18)
[2023-05-21] MEDS ORDERED: Famotidine IV 10 MG/ML 2 ml VIAL (20 mg) ONE (08:28)
[2023-05-21] MEDS ORDERED: cefTRIAXone 2 gm/50 mL D5W 2 GM/50 ML BAG IV ONE (08:28)
[2023-05-21 08:39] LABS: Rapid COVID-19 Molecular Undetected (Undetected)
[2023-05-21] MEDS ORDERED: Lidocaine 2% PF 5 ML VIAL ONE ×2 (10:17→10:48)
[2023-05-21] MEDS ORDERED: Phenylephrine 40 mcg/mL 10mL (400mcg) SYRINGE ONE (10:52)
[2023-05-21] MEDS ORDERED: fentaNYL 100 mcg/2 ml 50 MCG/ML VIAL IV PRN (11:01)
[2023-05-21] MEDS ORDERED: Naloxone 0.4 mg VIAL 0.4 mg/ml 1 ml VIAL IV PRN (11:01)
[2023-05-21] MEDS ORDERED: HYDROmorphone 1 MG/1 ML SYRINGE IV PRN (11:01)
[2023-05-21] MEDS ORDERED: Dexamethasone IV 4 MG/ML VIAL 1 ml VIAL ONE (11:46)
[2023-05-21] MEDS ORDERED: Lidocaine 2% JELLY 6 ML Topical TOPICAL PRN (16:16)
[2023-05-21] MEDS: NS 0.9% 1,000 ML IV SCH ×2 (16:28→22:59)
[2023-05-21] MEDS: oxyCODONE/Acetamin 5/325 mg TAB PO PRN (22:55)
[2023-05-22] MEDS: NS 0.9% 1,000 ML IV SCH (05:47)
[2023-05-22] MEDS: oxyCODONE/Acetamin 5/325 mg TAB PO PRN ×2 (06:09→11:26)
[2023-05-22] MEDS ORDERED: cefTRIAXone 1 gm/50 mL D5W 1 GM/50 ML BAG IV ONE (07:30)
[2023-05-22 10:10] VITALS: BP 135/76
== END 2023-05-22 11:45 | disposition home or self-care (01) ==
LOC: OR 07:38 → SSU 07:38
PROVIDERS: ADMIT Urology; ATTEND Urology